=== PATIENT | female | born 1970 | race Caucasian/White ===

== ENCOUNTER 2018-12-14 18:54 | Emergency (ER) | payer SELFPAY | END 2018-12-14 22:49 | disposition home or self-care (01) | LOC: FTE 18:54 | DX: R05 Cough (principal); R06.02 Shortness of breath | CPT/HCPCS: 71046; 93005; 99284-25 ==

== ENCOUNTER 2018-12-28 17:00 | Emergency (ER) | payer SELFPAY | END 2018-12-28 21:47 | disposition home or self-care (01) | LOC: FTE 21:47 | DX: J40 Bronchitis, not specified as acute or chronic (principal) | CPT/HCPCS: 71046; 99283-25 ==

== ENCOUNTER 2019-03-30 09:55 | Emergency (ER) | payer MEDICAID ==
[2019-03-30] MEDS ORDERED: IBUPROFEN 600 MG TAB PO (11:00)
== END 2019-03-30 11:05 | disposition home or self-care (01) ==
LOC: FTE 11:05
DX: J20.9 Acute bronchitis, unspecified (principal)
CPT/HCPCS: 87880; 99283